=== PATIENT | female | born 1950 | race Caucasian/White ===

== ENCOUNTER 2018-06-02 04:02 | Inpatient (IN) | payer MEDICARE, OTHER ==
[2018-06-02] MEDS ORDERED: Albuterol Sulfate 2.5 mg/3 ml Neb ONE (04:21)
[2018-06-02 04:32] LABS: Actual Bicarbonate (HCO3a) 22.7 mEq/L (22-28); Analyzer IN Cardio ER; Base Excess (BEa) 1.5 mEq/L (-2.0 to +3.0); Calcium, Ionized 1.06 mmol/L (1.12-1.30); Carboxyhemoglobin (COHb) 0.9 gm% (0.0-3.0); Hemoglobin (Hb) 10.6 g/dL (12.0-16.0); O2 Tension (PaO2) 61.5 mmHg (> 80.0); Potassium - ABG Lab 3.58 mmol/L (3.70-5.30)
[2018-06-02] MEDS ORDERED: Magnesium 2 GM/50 ML BAG (IN WATER) ONE (04:58)
[2018-06-02] MEDS ORDERED: Dexamethasone 10 MG/ML VIAL ONE (04:58)
[2018-06-02 05:00] LABS: #Lymphocytes 1.6 thou/uL (1.20-3.40); #Monocytes 0.8 thou/uL (0.11-0.59); #Neutrophils 7.2 thou/uL (1.40-6.50); %Basophils 0.4 % (0.0-1.0); %Eosinophils 0.2 % (0.0-10.0); %Lymphocytes 16.4 % (21.0-51.0); %Monocytes 7.9 % (0.0-10.0); %Neutrophils 75.2 % (42.0-75.0); Hemoglobin 10.7 g/dL (12.0-16.0); Mean Corpuscular HGB CONC 32.9 g/dL (32.0-36.0); Mean Corpuscular Hemoglobin 32.9 pg (27.0-31.0); Mean Platelet Volume 7.3 fL (7.4-10.4); Platelet Count 219 thou/uL (130-400); RBC Distribution Width 13.5 % (11.5-14.5); Red Blood Cell (RBC) Count 3.25 mill/uL (4.20-5.40); White Blood Cell (WBC) Count 9.6 thou/uL (4.8-10.8)
[2018-06-02 05:18] LABS: pH, Arterial 7.57 (7.35-7.45)
[2018-06-02 05:19] LABS: ALV-art Gradient 56.605 (0-20); CO2 Tension 25.3 mmHg (35.0-45.0); Puncture Site LRA
[2018-06-02 05:36] LABS: ALT (SGPT) 14 U/L (8-55); AST (SGOT) 16 U/L (5-34); Albumin 3.7 g/dL (3.4-4.8); Alkaline Phosphatase 56 U/L (40-150); Anion Gap 13 mmol/L (10-20); BUN (Urea Nitrogen) 17 mg/dL (9.8-20.1); Bilirubin, Total 1.3 mg/dL (0.2-1.2); CK (CPK) 74 U/L (29-168); Calc. Creatinine Clearance 0 mL/min (70-130); Calcium 8.7 mg/dL (7.8-10.44); Carbon Dioxide 24 mmol/L (23-31); Chloride 102 mmol/L (98-107); Estimated GFR-MDRD 62; Glucose 106 mg/dL (80-115); Lipase 10 U/L (8-78); Potassium 3.7 mmol/L (3.5-5.1); Protein, Total 6.7 g/dL (6.0-8.3); Sodium 135 mmol/L (136-145)
[2018-06-02 06:55] LABS: Bilirubin Negative (Negative); Blood, Urine Trace (Negative); Clarity CLEAR (Clear); Glucose, Urine (Dipstick) Negative (Negative); Leukocyte Negative (Negative); Nitrite Negative (Negative); Protein, Urine (Dipstick) Negative (Neg-Trace); pH, Urine 6.5 (5.0-9.0)
[2018-06-02 06:57] LABS: Bacteria/HPF None Seen HPF (None Seen); Hyaline Casts/LPF 0-3 HYALINE CAST LPF (0-3 Hyaline); Pathc Cast-AUWi Flag 0.13 (0-2.49); Squamous Epithelial 0-3 HPF (0-3); WBC/HPF 0-3 HPF (0-3)
--- NOTE | 2018-06-02 07:18 | CT ---
CTA THORAX UTILIZING IV CONTRAST WITH PE PROTOCOL AND 3D REFORMATTED IMAGING: Date: 06/02/18 COMPARISON: None. INDICATION: Rule out pulmonary embolus. FINDINGS: No central or segmental pulmonary embolus is evident. There are patchy areas of reticular nodularity seen within the left upper lobe, lingula, left lower l obe, and right lower lobe. More areas of more confluent consolidation is present within the ll. There are shotty appearing lymph nodes within the mediastinum and hilar regions. Visualized upper abdomen reveals no acute abnormality. No acute osseous abnormality is evident. IMPRESSION: 1. No central or segmental pulmonary embolus. 2. Scattered areas of reticular nodularity and associated air space consolidation is suspicious for multifocal bronchopneumonia. Recommend appropriate antibiotic therapy and a follow-up CT evaluation i n 6-8 weeks to document resolution. POS: ALMA
[2018-06-02] MEDS ORDERED: Diabetic Tussin 200 MG/10 ML UDCUP PO PRN (08:14)
[2018-06-02] MEDS ORDERED: Benzonatate 100 MG CAP PO PRN (08:14)
[2018-06-02] MEDS ORDERED: Acetaminophen 325 MG TAB PO PRN (08:14)
[2018-06-02] MEDS ORDERED: hydrALAZINE 20 MG/ML VIAL SLOW IVP PRN (08:14)
[2018-06-02] MEDS ORDERED: Ibuprofen 600 MG TAB PO PRN (08:15)
[2018-06-02] MEDS ORDERED: Bacteriostatic Water 30 ML VIAL FS PRN (08:25)
--- NOTE | 2018-06-02 08:32 | RAD ---
PORTABLE CHEST: Date: 06/02/18 HISTORY: Dyspnea. FINDINGS: Hazy infiltrate and/or atelectasis in the left lung base. Lungs otherwise appear clear. Heart size no rmal. IMPRESSION: Atelectasis and/or infiltrate in the left lung base. POS: OFF
[2018-06-02] MEDS ORDERED: Enoxaparin Sodium 40 MG/0.4 ML SYRINGE ONE (08:42)
[2018-06-02] MEDS ORDERED: methylPREDNISolone Sod Succ 40 MG VIAL ONE (08:42)
[2018-06-02] MEDS ORDERED: Famotidine 20 MG TAB ONE (08:42)
[2018-06-02 09:25] LABS: Lactic Acid 3.5 mmol/L (0.5-2.2)
[2018-06-02] MEDS: Famotidine 20 MG TAB PO SCH ×2 (10:08→20:42)
[2018-06-02] MEDS: Enoxaparin Sodium 40 MG/0.4 ML SYRINGE SC SCH (10:08)
[2018-06-02] MEDS: methylPREDNISolone Sod Succ 40 MG VIAL IVP SCH ×2 (10:09→16:52)
--- NOTE | 2018-06-02 10:12 | HP ---
PRIMARY CARE PHYSICIAN: Dr. Leela Foster in [place]. CHIEF COMPLAINT: Shortness of breath. HISTORY OF PRESENT ILLNESS: Ms. Ortega is a pleasant 67-year-old female, who has a history of asthma as well as psoriasis. She was in her usual state of health until last Sunday when she began noticing some shortness of breath as well as some cough. Then on , she began having a fever. For this reason, she went to the clinic thinking that she probably had an asthma exacerbation. There, she was given a Z -Gino as well as a dose of steroids, Singulair, and albuterol inhaler as well as Advair. She says she was taking these and then on Sunday, she felt a little better, but on Sunday at around 5:30 p.m., the fever started again. She started having dry heaving and cough productive of some milky sanchez sputum. She also noted some pain across her back, primarily when she coughs. She says she was also so short of breath, she could barely talk. This is what worried her and her son, whom she was visiting here, stated that she should go to the ER, which she did. In the ER, she had a CT angiogram of the chest looking for PE, but there was no PE and it was found that she has a multifocal pneumonia. She is being admitted for this. She denies having any hemoptysis. She denies feeling dizzy or lightheaded. She says the pain in her chest is only with coughing. She denies any leg pain or leg swelling. REVIEW OF SYSTEMS: All systems were reviewed and are negative except for that mentioned in the history of present illness. PAST MEDICAL HISTORY: Includes asthma, psoriasis, and osteoarthritis. PAST SURGICAL HISTORY: She has had a hysterectomy. ALLERGIES: NO KNOWN DRUG ALLERGIES. SOCIAL HISTORY: She is a nonsmoker and nondrinker. She is , has 2 children. She is a retired nurse. FAMILY HISTORY: Significant for asthma in her mother. Diabetes mellitus and hypertension as well as osteosclerosis in her father and her father had hypertension. CURRENT MEDICATIONS: Include; 1. Methotrexate 15 mg every week. 2. Dapsone 25 mg two a day. 3. Calcium and vitamin D. 4. Folic acid 1 mg daily. 5. Zyrtec D. PHYSICAL EXAMINATION: GENERAL: She is alert and oriented. She appears to be in no acute distress. She is well developed, well nourished, very pleasant and cooperative with the exam. VITAL SIGNS: Blood pressure was 156/73, heart rate is around 100, respiratory rate of 20, and temperature is 99.1. HEENT: Her pupils are equal, round, and reactive to light. Extraocular muscles are intact. Her sclerae are anicteric. Throat; there is no erythema. No exudate. Her tympanic membranes are pearly sanchez. There is no fluid behind the drum. NECK: No adenopathy. No bruits. LUNGS: She has slight wheezing, but primarily rhonchi bilaterally as well as some rales at the base. CARDIOVASCULAR: She has a normal S1 and S2. There is no S3 or S4. No murmurs, clicks, or rubs. ABDOMEN: Obese. It is soft. It is nontender, nondistended. Positive for bowel sounds. There is no rebound. No guarding. No organomegaly. EXTREMITIES: She has trace pedal edema, but no calf tenderness. No joint effusions. NEUROLOGIC: Her cranial nerves II through XII are grossly intact and her muscle strength is 5/5 in both upper and lower extremities. SKIN AND INTEGUMENT: She did have some mild erythema on the lower extremities, but there was no warmth. LABORATORY RESULTS: Her white blood cell count is 9.6, hemoglobin 10.5, hematocrit is 32.5, and platelet count is 219. Sodium is 135, potassium 3.7, chloride is 102, CO2 is 24, BUN of 17, creatinine 0.9, and glucose is 106. IMAGING DATA: Her CT scan showed multifocal pneumonia. Chest x-ray is essentially the same. This is by my reading. She had some mild borderline cardiomegaly and increased opacities bilaterally. ASSESSMENT AND PLAN: This is a 67-year-old female, who presents to the emergency room with complaints of difficulty breathing. She is being admitted for Acute respiratory failure with Hypoxemia, due to Community acquired Pneumonia and Asthma exacerbation. She also had fever and radiographic evidence of pneumonia. She appeared to not do well with azithromycin. Therefore, she will be admitted for failed outpatient treatment. We will change her antibiotics to Levaquin. Continue IV steroids, DuoNeb, and a long-acting or an inhaled steroid. She will also be placed on DVT and GI prophylaxis and we will follow her clinically. Job ID: [id number] MTDD
[2018-06-02 10:16] VITALS: BMI 39.1
[2018-06-02] MEDS ORDERED: Fluticasone Propionate HFA 110 MCG AER INH SCH (18:30)
[2018-06-02] MEDS: Mometasone 100 MCG HFA INHALER INH SCH (18:38)
[2018-06-02] MEDS ORDERED: Montelukast Sodium 10 mg Tablet PO SCH (21:00)
[2018-06-03] MEDS: methylPREDNISolone Sod Succ 40 MG VIAL IVP SCH ×2 (01:33→08:03)
[2018-06-03] MEDS: Mometasone 100 MCG HFA INHALER INH SCH (07:04)
[2018-06-03 07:15] VITALS: TEMP 98.5
[2018-06-03 07:22] LABS: Anion Gap 15 mmol/L (10-20); BUN (Urea Nitrogen) 14 mg/dL (9.8-20.1); Calc. Creatinine Clearance 108 mL/min (70-130); Calcium 8.6 mg/dL (7.8-10.44); Carbon Dioxide 18 mmol/L (23-31); Chloride 106 mmol/L (98-107); Estimated GFR-MDRD 68; Glucose 182 mg/dL (80-115); Potassium 4.2 mmol/L (3.5-5.1); Sodium 135 mmol/L (136-145)
[2018-06-03] MEDS: Enoxaparin Sodium 40 MG/0.4 ML SYRINGE SC SCH (08:03)
[2018-06-03] MEDS: Famotidine 20 MG TAB PO SCH (08:03)
[2018-06-03] MEDS ORDERED: METHOTREXATE SODIUM 15 MG PO SCH (08:15)
[2018-06-03 08:57] LABS: #Monocytes 1.5 thou/uL (0.11-0.59); #Neutrophils 10.3 thou/uL (1.40-6.50); %Eosinophils 0.4 % (0.0-10.0); %Lymphocytes 14.2 % (21.0-51.0); %Neutrophils 74.5 % (42.0-75.0); Hemoglobin 9.8 g/dL (12.0-16.0); Mean Corpuscular HGB CONC 31.3 g/dL (32.0-36.0); Mean Corpuscular Hemoglobin 31.9 pg (27.0-31.0); Mean Platelet Volume 7.4 fL (7.4-10.4); Platelet Count 234 thou/uL (130-400); RBC Distribution Width 13.8 % (11.5-14.5); Red Blood Cell (RBC) Count 3.07 mill/uL (4.20-5.40); White Blood Cell (WBC) Count 13.8 thou/uL (4.8-10.8)
[2018-06-03] MEDS ORDERED: Calcium Carbonate + Vit D 1 TAB PO SCH (09:00)
[2018-06-03] MEDS ORDERED: Folic Acid 1 MG TAB PO SCH (09:00)
[2018-06-03] MEDS ORDERED: Methotrexate Sodium 2.5 MG TAB PO SCH (09:00)
[2018-06-03 09:23] LABS: MDiff Complete? YES; Polychromasia SLIGHT = 2-3 cells (100X) (0-2/hpf)
--- NOTE | 2018-06-03 09:37 | PDOC.PN ---
- Subjective Encounter Start Date: 06/03/18 Encounter Start Time: 09:33 Ms. Ortega was seen today in follow-up of Pneumonia and asthma exacerbation. She says she feels much better today. She is wheezing less, and has less of a cough. - Objective Resuscitation Status - Order Detail: 06/02/18 08:09 Resuscitation Status Routine Resuscitation Status: FULL: Full Resuscitation MAR Reviewed: Yes Vital Signs & Weight: Vital Signs (12 hours) Temp Pulse Resp BP Pulse Ox 06/03/18 07:12 98.5 F 94 16 124/58 L 96 06/03/18 07:07 96 16 96 06/03/18 07:04 96 16 96 06/03/18 04:00 98.2 F 88 20 130/68 93 L 06/03/18 00:00 98.5 F 06/02/18 23:38 100 16 93 L Weight Weight 232 lb 4.8 oz I&O: 06/02/18 06/03/18 06/04/18 06:59 06:59 06:59 Intake Total 2420 Output Total 3 Balance 2417 Result Diagrams: 06/03/18 08:19 06/03/18 06:12 Phys Exam - Physical Examination HEENT: PERRLA Respiratory: no wheezing, no rales, no rhonchi, clear to auscultation bilateral Cardiovascular: RRR, no significant murmur, no rub Gastrointestinal: soft, non-tender, no distention, positive bowel sounds Musculoskeletal: no edema, pulses present Dx/Plan (1) Pneumonia, community acquired Code(s): J18.9 - PNEUMONIA, UNSPECIFIED ORGANISM Status: Acute (2) Acute respiratory failure with hypoxia Code(s): J96.01 - ACUTE RESPIRATORY FAILURE WITH HYPOXIA Status: Acute (3) Asthma exacerbation Code(s): J45.901 - UNSPECIFIED ASTHMA WITH (ACUTE) EXACERBATION Status: Acute (4) Pustular psoriasis Code(s): L40.1 - GENERALIZED PUSTULAR PSORIASIS Status: Chronic - Plan * Acute respiratory failure with hypoxemia- much improved * She has been stable off supplemental oxygen * She is stable for discharge home.
--- NOTE | 2018-06-03 10:40 | DIS ---
DATE OF ADMISSION: 06/02/2018 DATE OF DISCHARGE: 06/03/2018 PRIMARY CARE PHYSICIAN: Dr. Leela Foster in [place]. DISCHARGE DISPOSITION: Home. PRIMARY DISCHARGE DIAGNOSES: 1. Acute respiratory failure with hypoxemia. 2. Community-acquired pneumonia. 3. Asthma exacerbation. 4. Pustular psoriasis. DISCHARGE MEDICATIONS: Include, 1. Prednisone 10 mg daily for 5 days. 2. Levaquin 750 mg daily. 3. Methotrexate 15 mg every 7 days. 4. Folic acid 1 mg daily. 5. Dapsone 50 mg daily. 6. Calcium plus vitamin D 2 tablets daily. PROCEDURES: The procedures during the admission, the patient had a CT angiogram of the chest. This was negative for PE, but did show scattered areas of reticular nodularity associated with some airspace consolidation suspicious for multifocal bronchopneumonia. CODE STATUS: Full code. ALLERGIES: NO KNOWN DRUG ALLERGIES. HOSPITAL COURSE: Ms. Ortega is a pleasant 67-year-old female, who presented to the emergency room with complaints of severe shortness of breath. She was evaluated in the ER. A CT angiogram was done due to concerns for possible PE. This was negative for PE, but did demonstrate multifocal pneumonia. She was admitted and started on IV antibiotics. She had failed outpatient treatment with a Z-Gino and steroids from her primary care physician. However, after 1 day in the hospital, she improved dramatically, was able to be weaned off oxygen, has been ambulatory without difficulty, and therefore, will be discharged home with close outpatient followup. Job ID: [id number]
[2018-06-03 11:10] VITALS: BP 125/65
== END 2018-06-03 12:06 | disposition home or self-care (01) | DRG 193 ==
LOC: ERS 04:02 → ERHOLD 05:37 → 2NO 06:08
PROVIDERS: ADMIT Hospitalist; ATTEND Hospitalist
DX: J18.9 Pneumonia, unspecified organism (principal); J96.01 Acute respiratory failure with hypoxia; J45.901 Unspecified asthma with (acute) exacerbation; L40.1 Generalized pustular psoriasis; M19.91 Primary osteoarthritis, unspecified site; Z90.710 Acquired absence of both cervix and uterus; Z79.899 Other long term (current) drug therapy
CPT/HCPCS: 36415; 71045; 71275; 80048; 80053; 81003; 81015; 82550; 82805; 83605; 83690; 83880; 84484; 85025; 85379; 87040; 87804; 93005; 94640; J1100; J1650; J1956; J2920; J3475; J7611; J7620